=== PATIENT | male | born 1955 | race Two or more races ===

== ENCOUNTER → 2024-11-28 | Outpatient (CLI) | payer MEDICARE, MEDICAID, SELFPAY ==
--- NOTE | 2024-11-28 07:30 | XR_ITS ---
Examination: CT abdomen and pelvis without contrast. Coronal 3-D reconstructions. Sagittal 2-D reconstructions. Date and time of exam:November 28, 2024 0744 hrs. Indications: Abdominal pain one month, outside imaging hydronephrosis this week CTDI: vol (mGy): 5.44 DLP: (mGycm): 304 Technique: Axial images of the abdomen have been obtained, 3 mm slice thickness Intravenous contrast material has not been administered. Low dose protocols were performed. One or more of the following dose reduction techniques were used; automated exposure control, adjustment of the mA and/or KV according to patient size, use of iterative reconstruction technique. Findings: No focal liver or splenic lesion No gallstones No pancreatic mass Posterior left renal cyst, 25 mm 1 mm left renal calculus Irregular low-density mass in the right renal pelvis 3.7 cm No hydronephrosis or ureteral calculi Heavy abdominal aortic calcification Normal appendix No bowel obstruction Urinary bladder wall thickening up to 3 mm Transverse prostate dimension 3.4 cm Fat-containing inguinal hernias Grade 1 spondylolisthesis L5 on S1 with moderate disc narrowing at the L5-S1 level Impression: 1. Millimeter nonobstructing left renal calculus Irregular low-density mass in the right renal pelvis which may represent a complex cyst, 3.7 cm Recommend MRI kidneys follow-up pre and postcontrast
== END | disposition home or self-care (01) ==
LOC: CCTX 07:06
PROVIDERS: PCP Obstetrics & Gynecology; Referring Provider Obstetrics & Gynecology; Visit Provider Obstetrics & Gynecology
DX: N20.0 Calculus of kidney (principal); R19.09 Other intra-abdominal and pelvic swelling, mass and lump
CPT/HCPCS: 74176